=== PATIENT | female | born 1980 | race Caucasian/White ===

== ENCOUNTER 2017-08-22 14:31 | Emergency (ER) | payer BC ==
[~2017-08-22] VITALS: Ht 170.2 cm; Wt 86.0 kg
[~2017-08-22 14:31] MED LIST: Ambien PO; ENDOCET 5-3251 EACH PO; FLONASE16 G1 BOTH NARES; IBUPROFEN800 MG PO; Motrin PO; NATALCARE RX1 TABLET PO; Percocet 5/325,Endoc PO; SIMILAC PRENAT1 EACH PO; ZYRTEC10 M2 PO; ZYRTEC10 M3 PO
[2017-08-22 15:46] LABS: HEMATOCRIT 41.6 % (36.0-46.0); MCH 31.8 PG (29.0-34.0); MCHC 34.4 G/DL (30.0-36.0); MCV 92.7 FL (83-99); MEAN PLAT.VOLUME 10.7 uM^3 (9.5-12.4); PLATELET COUNT 288 K/uL (156-360); RBC DIS.WIDTH-CV 12.2 % (11.8-14.6); RBC DIS.WIDTH-SD 41.5 % (39-53); RED BLOOD COUNT 4.49 M/uL (3.80-5.20); WHITE BLOOD COUNT 7.2 K/uL (4.1-10.2)
[2017-08-22 15:55] LABS: CHLORIDE 108 mEq/L (99-109); POTASSIUM 4.1 mEq/L (3.7-5.4); SODIUM 139 mEq/L (136-147)
[2017-08-22 15:56] LABS: GLUCOSE 90 mg/dL (70-99)
[2017-08-22 15:58] LABS: ANION GAP 8 MEQ/L (2-14)
[2017-08-22 16:00] LABS: GFR ESTIMATE (CALCULATED) > 59 mL/min/
[2017-08-22 16:01] LABS: UREA NITROGEN (BUN) 12 mg/dL (9-23)
[2017-08-22 16:07] LABS: TROP-I INTERPRETATION NEGATIVE; TROPONIN-I < 0.01 ng/mL (0.0-0.30)
[2017-08-22 16:37] LABS: QUANTITATIVE HCG < 4.0 MIU/ML
[2017-08-22 16:43] LABS: TOTAL BILIRUBIN 0.5 mg/dL (0.0-1.0)
[2017-08-22 16:44] LABS: ALKALINE PHOSPHATASE 59 IU/L (3-129)
[2017-08-22 16:47] LABS: DIRECT BILIRUBIN 0.2 mg/dL (0.0-0.3)
[2017-08-22 16:48] LABS: LIPASE 15 U/L (1.0-51.0)
[2017-08-22 17:57] VITALS: BP 120/74
== END 2017-08-22 17:57 | disposition home or self-care (01) ==
LOC: EME 14:31
PROVIDERS: Nurse Practitioner Family
DX: R07.89 Other chest pain (principal); M54.12 Radiculopathy, cervical region; K21.9 Gastro-esophageal reflux disease without esophagitis; Z87.891 Personal history of nicotine dependence; Z82.49 Family history of ischemic heart disease and other diseases of the circulatory system; Z88.0 Allergy status to penicillin
CPT/HCPCS: 71020; 80048; 80076; 83690; 84484; 84702; 85027; 85379; 93005; 99281; 99284

== ENCOUNTER 2017-11-02 19:23 | Emergency (ER) | payer BC ==
[~2017-11-02] VITALS: Ht 170.2 cm; Wt 85.8 kg
[2017-11-02 19:59] LABS: HEMATOCRIT 42.6 % (36.0-46.0); HEMOGLOBIN 14.8 G/DL (11.9-15.5); MCH 31.8 PG (29.0-34.0); MCHC 34.7 G/DL (30.0-36.0); MCV 91.6 FL (83-99); PLATELET COUNT 282 K/uL (156-360); RBC DIS.WIDTH-CV 12.2 % (11.8-14.6); RED BLOOD COUNT 4.65 M/uL (3.80-5.20); WHITE BLOOD COUNT 7.3 K/uL (4.1-10.2)
[2017-11-02 20:07] LABS: ALBUMIN 4.2 g/dL (3.2-4.8)
[2017-11-02 20:08] LABS: CHLORIDE 106 mEq/L (99-109); POTASSIUM 3.7 mEq/L (3.7-5.4); SODIUM 140 mEq/L (136-147)
[2017-11-02 20:10] LABS: GLUCOSE 112 mg/dL (70-99); TOTAL PROTEIN 7.4 g/dL (6.4-8.3)
[2017-11-02 20:12] LABS: TOTAL BILIRUBIN 0.5 mg/dL (0.0-1.0)
[2017-11-02 20:13] LABS: ALKALINE PHOSPHATASE 68 IU/L (3-129)
[2017-11-02 20:14] LABS: CREATININE 0.9 mg/dL (0.6-1.3); GFR ESTIMATE (CALCULATED) > 59 mL/min/
[2017-11-02 20:15] LABS: AST (GOT) 18 IU/L (2-34); UREA NITROGEN (BUN) 14 mg/dL (9-23)
[2017-11-02 20:17] LABS: ALT (GPT) 20 IU/L (3-49)
[2017-11-02 20:20] LABS: TROP-I INTERPRETATION NEGATIVE; TROPONIN-I < 0.01 ng/mL (0.0-0.30)
[2017-11-02 20:22] LABS: QUANTITATIVE HCG < 4.0 MIU/ML
[2017-11-02 23:38] LABS: TROP-I INTERPRETATION NEGATIVE; TROPONIN-I < 0.01 ng/mL (0.0-0.30)
[2017-11-03 00:11] VITALS: BP 117/66
== END 2017-11-03 00:11 | disposition home or self-care (01) ==
LOC: EME 19:23
PROVIDERS: Physician Assistant
DX: R07.9 Chest pain, unspecified (principal); Z87.891 Personal history of nicotine dependence; Z88.0 Allergy status to penicillin
CPT/HCPCS: 71046; 80053; 84484; 84702; 85027; 87502; 93005; 99281; 99284